=== PATIENT | female | born 1970 | race Caucasian/White ===

== ENCOUNTER 2018-04-01 21:41 | Emergency (ER) | payer MEDICARE, MEDICAID ==
[~2018-04-01] VITALS: Ht 162.6 cm; Wt 136.1 kg
[2018-04-01] MEDS ORDERED: NKM (21:55)
[2018-04-01 22:10] VITALS: BP 138/98
--- NOTE | 2018-04-01 22:48 | Emergency Room Report ---
History of Present Illness General Chief Complaint: Upper Respiratory Illness Source: Patient Present Illness HPI Patient persist with complaints of cough and congestion ongoing for the past 2- 3 months reports that she had recent travel from [place] Through the course of the travel she has had increased URI symptoms Denies any chest pain denies any back or flank pain denies any vomiting or diarrhea Allergies: Coded Allergies: No Known Allergies (Unverified , 04/01/18) Patient History Past Medical History: see triage record Pertinent Family History: none Last Menstrual Period: 5 months ago Now: No - pt unsure Reviewed Nursing Documentation: PMH: Agreed; PSxH: Agreed Nursing Documentation-PMH Past Medical History: No Stated History Review of Systems All Other Systems: negative except mentioned in HPI Physical Exam Vital Signs Date Time Temp Pulse Resp B/P (MAP) Pulse Ox O2 Delivery O2 Flow Rate FiO2 04/01/18 21:46 98.1 91 16 138/98 97 Room Air Sp02 EP Interpretation: reviewed, normal General Appearance: no apparent distress Head: normocephalic, atraumatic Eyes: bilateral eye PERRL, bilateral eye EOMI ENT: hearing grossly normal, normal pharynx, TMs + canals normal, uvula midline Neck: full range of motion, supple, no meningismus, no bony tend Respiratory: lungs clear, normal breath sounds, no rhonchi, no respiratory distress, no retraction, no accessory muscle use Cardiovascular #1: normal peripheral pulses, regular rate, rhythm, no edema, no gallop, no JVD, no murmur Gastrointestinal: normal bowel sounds, non tender, soft, no mass, no organomegaly, non-distended, no guarding, no hernia, no pulsatile mass, no rebound Genitourinary: no CVA tenderness Musculoskeletal: normal inspection Neurologic: oriented x3, responsive, scoop filler III-XII nml as tested, motor strength/ tone normal, sensory intact Psychiatric: mood/affect normal Skin: normal color, no rash, warm/dry, palpation normal Lymphatic: normal inspection, no adenopathy Medical Decision Making Diagnostic Impression: Primary Impression: Upper respiratory infection ER Course Given the patient's history and presentation Given the duration of complaint x-ray was obtained X-ray significantly limited and quality is fairly poor There is no obvious acute pathology entertained Patient rested comfortably throughout her stay At this time is medically stable and cleared for discharge With close outpatient follow-up Chest X-Ray Diagnostic Results Chest X-Ray Diagnostic Results : Chest X-Ray Ordered: Yes # of Views/Limited/Complete: 1 View Indication: Shortness of Breath EP Interpretation: Yes Interpretation: no consolidation, no effusion, no pneumothorax Impression: No acute disease - Significantly limited Electronically Signed by: Merline Quezada DO Last Vital Signs Date Time Temp Pulse Resp B/P (MAP) Pulse Ox O2 Delivery O2 Flow Rate FiO2 04/01/18 22:10 98.1 91 16 138/98 97 Room Air Status: improved Disposition: HOME, SELF-CARE Condition: Improved Referrals: NOT CHOSEN IPA/MD,REFERRING (PCP) Additional Instructions: Patient is provided with the discharge instructions notified to follow up with primary doctor in the next 2-3 days otherwise return to the er with any worsening symptoms. Please note that this report is being documented using [employer] technology. This can lead to erroneous entry secondary to incorrect interpretation by the dictating instrument. Merline Quezada DO Apr 01, 2018 22:48
[2018-04-02 01:05] VITALS: BP 136/95
[2018-04-02 04:38] VITALS: BP 138/92
[2018-04-02 07:06] VITALS: BP 137/88
--- NOTE | 2018-04-02 09:42 | Diagnostic Imaging Report ---
Indication: Shortness of breath Technique: One view of the chest Comparison: And 14/10/2009 Findings: Body habitus limits evaluation. Patient is rotated to the right. Markedly improved aeration when compared to prior exam. No definite intraluminal trace, effusions, or congestion Impression: Limited exam. No definite acute process
== END 2018-04-02 07:10 | disposition home or self-care (01) ==
LOC: EMR 22:30
DX: J06.9 Acute upper respiratory infection, unspecified (principal)
CPT/HCPCS: 71045; 99283

== ENCOUNTER 2018-06-26 20:29 | Emergency (ER) | payer MEDICARE, MEDICAID ==
[~2018-06-26] VITALS: Ht 165.1 cm; Wt 113.4 kg
[~2018-06-26 20:29] MED LIST: NKM
--- NOTE | 2018-06-26 20:29 | NUR ---
ED Nurse Note: pt brought in by [id number] in front of [facility] [employer] c/o carlos leg pain and lac on carlos hip per ems report. pt states she doesn't have cut but feels like somebody is cutting her. Noted rash and skin moist in perineal area and lower abd skin fold area, +tenderness and redness noted with foul odor. pt obese, skin warm dry, resp even and unlabored on RA, -n/v/d, afebrile, will cont monitor. ambulatory w/ steady gait. pt states she is not homeless and lives at home with .
--- NOTE | 2018-06-26 20:29 | NUR ---
ED Nurse Note: pt refused to do minilog, pt states she is in pain and tired doesn't want to do it.
[2018-06-26 20:42] VITALS: BP 136/69
--- NOTE | 2018-06-26 21:12 | Emergency Room Report ---
History of Present Illness General Chief Complaint: Pain Source: Patient Present Illness HPI 47-year-old female presented after increased skin rash. Patient had gradual onset of symptoms. She reports having several days of symptoms. Patient was noted to be ambulatory and was brought in by EMS. Patient was noted to have prior history of morbid obesity. She reports having allergy to acetaminophen. Allergies: Coded Allergies: ACETAMINOPHEN (Unverified Allergy, Unknown, 06/26/18) Patient History Past Medical History: see triage record Reviewed Nursing Documentation: PMH: Agreed; PSxH: Agreed Nursing Documentation-PMH Past Medical History: No History, Except For Review of Systems All Other Systems: negative except mentioned in HPI Physical Exam Vital Signs Date Time Temp Pulse Resp B/P (MAP) Pulse Ox O2 Delivery O2 Flow Rate FiO2 06/26/18 20:23 98.8 98 16 136/69 98 Room Air General Appearance: well appearing, alert, GCS 15, obese Head: normocephalic, atraumatic ENT: hearing grossly normal, normal voice Neck: full range of motion, supple Respiratory: no respiratory distress, speaking full sentences Cardiovascular #1: normal inspection, edema Gastrointestinal: soft, overweight Neurologic: alert, oriented x3, normal gait Psychiatric: mood/affect normal Skin: other - rash to bilateral inguinal area with satelite lesions Medical Decision Making Homeless Attestation I, Dr. Mccloud, the Treating physician, has assessed whether the patient is alert and oriented to person, place and time and has determined that the patient is clinically stable for discharge. Diagnostic Impression: Primary Impression: Yeast infection ER Course Patient present for skin rash. Differential diagnosis include was not limited to yeast infection, hidradenitis suppurativa, Yohana's gangrene among others. Patient has a benign exam and does not appear to require any further imaging or laboratory testing at this time. Patient appears to have some chronic yeast infection to her skin folds. Patient was given nystatin as well as Diflucan. Last Vital Signs Date Time Temp Pulse Resp B/P (MAP) Pulse Ox O2 Delivery O2 Flow Rate FiO2 06/26/18 20:42 98.8 98 16 136/69 98 Room Air Status: improved Disposition: HOME, SELF-CARE Condition: Stable Patient Instructions: Skin Yeast Infection Additional Instructions: Follow up with your doctor for recheck of skin lesion. Rehan Mccloud MD Jun 26, 2018 21:12
[2018-06-26] MEDS ORDERED: Fluconazole 100mg tab ORAL ONE (21:15)
--- NOTE | 2018-06-26 21:35 | NUR ---
ED Nurse Note: pt is cleared to be d/c per ERMD, pt states she stays at hotel and does not know where her stays and her mother can pick her up. called pt's mom, x 3 but no one picked up the phone, unable to leave message. pt states her mother lives in [place], and her cousin can pick her up but does not know the cousin number. charge nurse notified.
--- NOTE | 2018-06-27 00:22 | NUR ---
Human Resources Assistant Manager cab [id number].
--- NOTE | 2018-06-27 00:36 | NUR ---
ED Nurse Note: called [facility], per Gabriel statement, he will take pt and approved. pt provided with taxi voucher and called taxi. address: [address] [place] [address] phone number [phone]. Pt discharge instruction and aftercare instruction provided, pt given new pants and shoes, sandwich and water. list of free clinic provided and pt advised to follow up with clinic or return to ed if sx worsen or new sx develop. pt verbalized understanding and agrees with plan. all belongings of pt left with pt.
[2018-06-27 00:45] VITALS: BP 128/67
== END 2018-06-27 00:45 | disposition home or self-care (01) ==
LOC: EDBD 20:29 → EMR 20:45
DX: B37.89 Other sites of candidiasis (principal); Z88.6 Allergy status to analgesic agent
CPT/HCPCS: 81025; 99283